=== PATIENT | male | born 1960 | race Asian ===

== ENCOUNTER 2017-01-27 13:40 | Day surgery (SDC) | payer OTHER ==
[~2017-01-27] VITALS: Ht 170.2 cm; Wt 62.8 kg
[2017-01-27 14:15] VITALS: Ht 170.2 cm; Wt 62.8 kg
[2017-01-27 15:12] VITALS: BP 127/79; PULSE 64; RESP 21
[2017-01-27 15:34] VITALS: BP 117/70; PULSE 60; RESP 15
[2017-01-27] MEDS ORDERED: MIDAZOLAM 1 MG/ML 2 ML INJ ONE ×2 (15:38)
[2017-01-27] MEDS ORDERED: FENTAnyl 50 MCG/ML VIAL ONE (15:39)
[2017-01-27 16:05] VITALS: BP 108/71; PULSE 62; RESP 12
--- NOTE | 2017-02-01 04:39 | GILP ---
DATE OF PROCEDURE: 01/27/2017 PROCEDURE PERFORMED: Colonoscopy to cecum. SURGEON: Rufino Cunningham MD INDICATION: The patient is here for colorectal cancer screening. MEDICATIONS: Monitored anesthesia care by anesthesiologist. INSTRUMENT USED: Olympus colonoscope. PREPARATION: Adequate. TECHNIQUE: After informed consent, with the patient/relatives understanding the procedure, its indications potential risks and complications, including but not limited to: allergic reaction, bleeding, perforation, infection, missed lesions and after all pertinent questions were answered to the patient's satisfaction, the patient/relatives signed the witnessed informed consent. Following this, premedication was administered slowly IV push by under careful cardiovascular and respiratory monitoring with pulse oximetry, automatic blood pressure and monitor and storage bin tender. Once the sedative effect was achieved, the patient was placed in the left lateral decubitus position, digital rectal examination was performed. The colonoscope was then introduced and advanced under visual control throughout all segments of the colon including: the rectum, sigmoid, descending colon, splenic flexure, transverse colon, hepatic flexure, ascending colon and finally reaching the cecum which was clearly identified by transillumination, finger indentation and the ileocecal valve. Careful examination of the mucosa of the lower gastrointestinal tract both on insertion as well as withdrawal of the instrument disclosed the following findings: RECTAL EXAMINATION: No evidence of perirectal disease, no masses. COLONIC MUCOSA: The colonic mucosa entirely unremarkable throughout. The ileocecal valve was clearly identified and appears unremarkable. The instrument was withdrawn, re-examining the mucosa in detail. No additional abnormalities were noted with the exception of moderate size internal hemorrhoids. The instrument was then withdrawn, the patient tolerated the procedure well and was transferred out of the [facility]oscopy Suite awake and in good condition to continue recovery under observation. IMPRESSION: 1. Normal colonic mucosa to cecum. 2. Moderate size internal hemorrhoids. RECOMMENDATIONS: The patient will be followed up as an outpatient. Annual Hemoccult stool testing is recommended. A high-fiber diet is also recommended. Screening colonoscopy in 10 years is recommended. Dictated By: Rufino Cunningham MD /[email or web address] /Document#: [id number]
== END 2017-01-27 19:39 | disposition home or self-care (01) ==
LOC: GIL 13:40
PROVIDERS: ATTEND Internal Medicine Gastroenterology
DX: Z12.11 Encounter for screening for malignant neoplasm of colon (principal)
CPT/HCPCS: 45378; J2250; J3010; Z7610